=== PATIENT | female | born 1995 | race Caucasian/White ===

== ENCOUNTER 2021-08-25 21:51 | Emergency (ER) | payer MEDICAID ==
[~2021-08-25] VITALS: Ht 152.4 cm; Wt 102.0 kg
[2021-08-25 22:54] LABS: CLARITY,URINE SLIGHTLY CLOUDY (Clear); COLOR,URINE YELLOW (Yellow); GLUCOSE, URINE NEGATIVE (Neg); KETONES,URINE NEGATIVE (Neg); LEUKOCYTE ESTERASE ,URINE NEGATIVE (Neg); NITRITES, URINE POSITIVE (Neg); OCCULT BLOOD,URINE NEGATIVE (Neg); PROTEIN,URINE NEGATIVE (Neg); UROBILINOGEN,URINE 0.2 E.U/dL (0.2-1.0)
[2021-08-25 22:58] LABS: URINE HCG NEGATIVE (NEG)
[2021-08-25 23:07] LABS: UA COLLECTION TYPE CLN CATCH MIDSTREAM
[2021-08-25 23:08] LABS: RBC,URINE 0-2 /HPF (0-2); WBC,URINE 0-4 /HPF (0-4)
[2021-08-25 23:09] LABS: BACTERIA,URINE 4+ /HPF (Neg); MUCUS STRANDS FEW /LPF (Neg); SQUAMOUS EPITHELIAL CELL,UR MODERATE /LPF (FEW)
[2021-08-26 00:15] VITALS: BP 110/44
[2021-08-26] MEDS ORDERED: cephalexin 250mg capsule PO ONE (01:10)
[2021-08-26] MEDS ORDERED: CEPH-585 PO (01:23)
== END 2021-08-26 01:37 | disposition home or self-care (01) ==
LOC: ER 21:52
DX: S00.83XA Contusion of other part of head, initial encounter (principal); N39.0 Urinary tract infection, site not specified; R35.0 Frequency of micturition; R30.9 Painful micturition, unspecified; Z87.440 Personal history of urinary (tract) infections; Z88.2 Allergy status to sulfonamides; Z88.6 Allergy status to analgesic agent; Z79.2 Long term (current) use of antibiotics; X58.XXXA Exposure to other specified factors, initial encounter; Y93.89 Activity, other specified; Y92.89 Other specified places as the place of occurrence of the external cause; Y99.8 Other external cause status
CPT/HCPCS: 81001; 81025; 87077; 87088; 87186; 99283

== ENCOUNTER 2021-08-29 02:49 | Emergency (ER) | payer MEDICAID ==
[~2021-08-29] VITALS: Ht 152.4 cm; Wt 102.3 kg
[~2021-08-29 02:49] MED LIST: CEPH-585 PO
[2021-08-29] MEDS ORDERED: cephalexin 250mg capsule PO ONE (03:25)
[2021-08-29] MEDS ORDERED: CEPH250T PO (03:26)
[2021-08-29 04:15] VITALS: BP 128/83
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
== END 2021-08-29 05:15 | disposition home or self-care (01) ==
LOC: ER 02:50 → EEVIPCON 02:50 → ER 05:15
DX: Z76.0 Encounter for issue of repeat prescription (principal); N39.0 Urinary tract infection, site not specified; Z87.440 Personal history of urinary (tract) infections; Z88.2 Allergy status to sulfonamides; Z88.6 Allergy status to analgesic agent; Z79.2 Long term (current) use of antibiotics
CPT/HCPCS: 99283

== ENCOUNTER 2021-09-11 09:43 | Emergency (ER) | payer MEDICAID ==
[~2021-09-11] VITALS: Ht 165.1 cm; Wt 102.0 kg
[2021-09-11 09:50] VITALS: BP 119/75
[2021-09-11] MEDS ORDERED: BENZ-38 PO (12:44)
[2021-09-11] MEDS ORDERED: ALBU8.5H17 IH (12:44)
[2021-09-11] MEDS ORDERED: AMOX-580 PO (12:44)
[2021-09-11] MEDS ORDERED: AZIT250T29 PO (12:44)
== END 2021-09-11 13:09 | disposition home or self-care (01) ==
LOC: ER 09:45
DX: J18.9 Pneumonia, unspecified organism (principal); Z20.822 Contact with and (suspected) exposure to COVID-19; Z87.448 Personal history of other diseases of urinary system; Z88.2 Allergy status to sulfonamides; Z88.8 Allergy status to other drugs, medicaments and biological substances; Z79.899 Other long term (current) drug therapy
CPT/HCPCS: 71046; 87502; 87503; 87635; 99284; C9803

== ENCOUNTER 2022-12-11 11:08 | Emergency (ER) | payer MEDICAID ==
[~2022-12-11] VITALS: Ht 152.4 cm; Wt 119.5 kg
[~2022-12-11 11:08] MED LIST changes: +ALBU8.5H17 IH; -CEPH-585 PO
[2022-12-11 11:14] VITALS: BP 144/97; PULSE 82; RESP 16; TEMP 98.7; O2SAT 100
[2022-12-11] MEDS ORDERED: AMOX-580 PO (11:47)
[2022-12-11] MEDS ORDERED: HYDR-3972 PO (11:47)
[2022-12-11] MEDS ORDERED: TRAM50TA2 PO (12:10)
== END 2022-12-11 12:14 | disposition home or self-care (01) ==
LOC: ER 11:09
DX: K02.9 Dental caries, unspecified (principal); K08.89 Other specified disorders of teeth and supporting structures; Z88.2 Allergy status to sulfonamides; Z88.8 Allergy status to other drugs, medicaments and biological substances; Z79.899 Other long term (current) drug therapy; Z79.2 Long term (current) use of antibiotics; Z87.440 Personal history of urinary (tract) infections
CPT/HCPCS: 99283